=== PATIENT | female | born 1960 | race Caucasian/White ===

== ENCOUNTER 2022-07-07 18:27 | Emergency (ER) | payer MEDICARE, OTHER ==
[~2022-07-07] VITALS: Ht 167.6 cm; Wt 104.3 kg
== END 2022-07-07 19:36 | disposition home or self-care (01) ==
LOC: ER 18:27
DX: K08.89 Other specified disorders of teeth and supporting structures (principal); Z88.2 Allergy status to sulfonamides; Z88.8 Allergy status to other drugs, medicaments and biological substances
CPT/HCPCS: 64400; 99282-25

== ENCOUNTER 2022-07-27 12:05 | Emergency (ER) | payer MEDICARE, OTHER ==
[~2022-07-27] VITALS: Ht 167.6 cm; Wt 101.5 kg
[2022-07-27 12:49] LABS: BASOPHILS ABSOLUTE AUTO 0.08 K/mm3 (0.00-0.23); BASOPHILS PERCENT AUTO 1 % (0-2); EOSINOPHILS ABSOLUTE AUTO 0.17 K/mm3 (0.00-0.68); EOSINOPHILS PERCENT AUTO 1 % (0-6); Hematocrit 47.6 % (33.0-51.0); IMMATURE GRAN ABSOLUTE AUTO 0.09 K/mm3 (0.00-0.10); IMMATURE GRAN PERCENT AUTO 1 % (0-1); LYMPHOCYTES ABSOLUTE AUTO 2.95 K/mm3 (0.84-5.20); LYMPHOCYTES PERCENT AUTO 17 % (21-46); MONOCYTES ABSOLUTE AUTO 0.77 K/mm3 (0.16-1.47); MONOCYTES PERCENT AUTO 4 % (4-13); Mean Corpuscular HGB 28.4 pg (26.0-34.0); Mean Corpuscular HGB Conc 33.6 g/dL (31.5-36.5); Mean Corpuscular Volume 85 fL (80-100); Mean Platelet Volume 9.7 fL (9.1-12.4); NEUTROPHILS ABSOLUTE AUTO 13.46 K/mm3 (1.96-9.15); NEUTROPHILS PERCENT AUTO 77 % (41-73); Platelet Count 376 K/mm3 (150-400); Red Blood Cell Count 5.63 M/mm3 (3.80-5.20); White Blood Cell Count 17.52 K/mm3 (4.00-11.30)
[2022-07-27 13:06] LABS: Albumin, Blood 3.5 g/dL (3.4-5.0); Albumin/Globulin Ratio 0.8 (0.8-1.8); Bilirubin, Total 0.7 mg/dL (0.1-1.0); Bun/Creatinine Ratio 24.3 (12.0-20.0); Calcium, Blood 9.5 mg/dL (8.5-10.1); Creatinine, Blood 0.95 mg/dL (0.40-1.00); Globulin, Blood 4.3 g/dL (2.2-4.0); Potassium, Blood 3.9 mmol/L (3.5-5.5); Total Protein, Blood 7.8 g/dL (6.4-8.2)
[2022-07-27 16:52] LABS: Source, Urine Voided
[2022-07-27 16:59] LABS: Appearance, Urine Hazy (Clear); Bilirubin, Urine Neg (Neg); Blood, Urine 3+ (Neg); Color, Urine Yellow (P-Yellow); Glucose Qualitative, Urine 2+ (Neg); Ketones, Urine 1+ (Neg); Leukocyte Esterase, Urine Neg (Neg); Nitrite, Urine Neg (Neg); Protein, Urine 3+ (Neg); Urobilinogen, Urine NORM (Normal)
[2022-07-27 17:10] LABS: Bacteria Many /hpf; Squamous Epithelial Cells Few /hpf (Few)
[2022-07-27 17:12] LABS: Amorphous Light (0-Heavy); Hyaline Casts 0-2 /lpf (0-2)
[2022-07-27] MEDS ORDERED: ONDA4ODT MM (17:17)
== END 2022-07-28 09:35 | disposition home or self-care (01) ==
LOC: ER 12:05
PROVIDERS: Emergency Medicine; Student in an Organized Health Care Education/Training Program
DX: R11.2 Nausea with vomiting, unspecified (principal); R19.7 Diarrhea, unspecified; Z88.2 Allergy status to sulfonamides; Z88.1 Allergy status to other antibiotic agents
CPT/HCPCS: 36415; 80053; 81001; 82947; 83605; 83690; 85025; 87086; 96361; 96365; 96375; 96376; 99283-25; A9270; J1580; J1790; J2060; J7030

== ENCOUNTER → 2022-08-16 | Outpatient (CLI) | payer MEDICARE, OTHER ==
[~2022-08-16] MED LIST: ONDA4ODT MM
[2022-08-19 06:39] LABS: Stool Occult Bld Immuno 1 Negative (NEGATIVE)
== END | disposition home or self-care (01) ==
LOC: LAB SHORT 19:03 → LAB 19:03
PROVIDERS: Registered Nurse
DX: Z12.11 Encounter for screening for malignant neoplasm of colon (principal); Z12.12 Encounter for screening for malignant neoplasm of rectum
CPT/HCPCS: G0328

== ENCOUNTER → 2022-11-03 | Outpatient (CLI) | payer MEDICARE, OTHER | END | disposition home or self-care (01) | LOC: LAB 11:25 → LAB SHORT 11:25 | DX: E11.65 Type 2 diabetes mellitus with hyperglycemia (principal); Z79.4 Long term (current) use of insulin | CPT/HCPCS: 82043 ==

== ENCOUNTER → 2022-11-08 | Outpatient (CLI) | payer MEDICARE, OTHER | END | disposition home or self-care (01) | LOC: LAB SHORT 16:47 → LAB 16:47 | DX: N30.01 Acute cystitis with hematuria (principal) | CPT/HCPCS: 87077; 87086; 87186 ==

== ENCOUNTER → 2024-02-23 | Outpatient (CLI) | payer MEDICARE, OTHER ==
[2024-03-01 08:57] LABS: HPV HIGH RISK BY TMA Not Detected; HPV SOURCE Cervical
== END ==
LOC: LAB 15:56 → LAB SHORT 15:56
PROVIDERS: Advanced Practice Midwife
DX: Z01.419 Encounter for gynecological examination (general) (routine) without abnormal findings (principal)
CPT/HCPCS: 87624; G0123

== ENCOUNTER → 2024-03-19 | Outpatient (CLI) | payer MEDICARE, OTHER ==
[2024-03-19 20:23] LABS: Microalb/Creat Ratio UR, Rand 538.854 mg/g (0.000-30.000)
== END ==
LOC: LAB SHORT 13:51 → LAB 13:51
PROVIDERS: Internal Medicine Endocrinology, Diabetes & Metabolism
DX: E11.65 Type 2 diabetes mellitus with hyperglycemia (principal)
CPT/HCPCS: 82043; 82570

== ENCOUNTER 2024-04-24 10:09 | Day surgery (SDC) | payer MEDICARE, OTHER ==
[2024-05-23] MEDS ORDERED: CLOBETASOL EMOL15 G1 TOP (14:02)
[2024-05-23] MEDS ORDERED: TRELEGY ELLIPT1 EACH INH (14:03)
[2024-05-23] MEDS ORDERED: HYDROCORTISONE30 GM (14:04)
[2024-05-23] MEDS ORDERED: HYDPAM50 PO (14:05)
[2024-05-23] MEDS ORDERED: Ketoconazole120 ML TOP (14:05)
[2024-05-23] MEDS ORDERED: LINZESS72 MCG PO (14:06)
[2024-05-23] MEDS ORDERED: OXYB5 PO (14:06)
[2024-05-23] MEDS ORDERED: KETO15TC TOP (14:06)
[2024-05-23] MEDS ORDERED: Crestor40 MG PO (14:07)
[2024-05-23] MEDS ORDERED: SERT100 PO (14:08)
[2024-05-23] MEDS ORDERED: OZEMPIC1 MG/0.72 SC (14:08)
[2024-05-23] MEDS ORDERED: TRAZ50 PO (14:08)
[2024-05-23] MEDS ORDERED: VALS80 PO (14:09)
== END 2024-05-08 23:00 | disposition home or self-care (01) ==
LOC: MOI MAM 10:09
DX: R92.8 Other abnormal and inconclusive findings on diagnostic imaging of breast (principal); N60.91 Unspecified benign mammary dysplasia of right breast
CPT/HCPCS: 19081; 88305; A4648

== ENCOUNTER → 2024-05-20 | Outpatient (CLI) | payer MEDICARE, OTHER ==
[~2024-05-20] MED LIST changes: +CLOBETASOL EMOL15 G1 TOP; +Crestor40 MG PO; +HYDPAM50 PO; +HYDROCORTISONE30 GM; +KETO15TC TOP; +Ketoconazole120 ML TOP; +LINZESS72 MCG PO; +OXYB5 PO; +OZEMPIC1 MG/0.72 SC; +SERT100 PO; +TRAZ50 PO; +TRELEGY ELLIPT1 EACH INH; +VALS80 PO
[2024-05-20 19:22] LABS: Creatinine Urine 67.4 mg/dL (27.00-270.00); Protein, Urine Quantitative 73.4 mg/dL (0.0-11.9)
== END ==
LOC: LAB 09:06 → LAB SHORT 09:06
PROVIDERS: Internal Medicine Endocrinology, Diabetes & Metabolism
DX: E11.29 Type 2 diabetes mellitus with other diabetic kidney complication (principal); R80.9 Proteinuria, unspecified
CPT/HCPCS: 82570; 84156

== ENCOUNTER 2024-06-14 09:37 | Day surgery (SDC) | payer MEDICARE, OTHER ==
[~2024-06-14] VITALS: Ht 165.1 cm; Wt 103.7 kg
[2024-06-14] VITALS (9 sets, daily range): BP systolic 106–196; BP diastolic 45–67
[~2024-06-14 09:37] MED LIST changes: +Clindamycin 600mg in D5W 50 ML IV SCH; +Lactated Ringer's 1,000 ML IV SCH
[2024-06-14] MEDS ORDERED: METO50ER PO (10:47)
[2024-06-14] MEDS ORDERED: TOPROL XL25 MG PO (10:48)
[2024-06-14] MEDS ORDERED: Furosemide20 MG PO (10:49)
--- NOTE | 2024-06-14 11:28 | NUR ---
Ambulatory in Day Surgery. History, Chart, Medications and Allergies reviewed before start of procedure. Lungs clear T/O to Auscultation. Patient confirms NPO status and agrees with scheduled surgery. Pre-Op teaching done. Pt verbalizes understanding. Patient States Post-Procedure ride home has been arranged. PT [facility].
[2024-06-14] MEDS ORDERED: Bupivacaine 0.5% HCl 5 MG/ML 30MLVIAL ONE (12:33)
[2024-06-14] MEDS ORDERED: Rocuronium Bromide 10 MG/ML 5ML Injection IV ONE ×2 (12:50→13:09)
[2024-06-14] MEDS ORDERED: Dexamethasone Sod Phos 10 MG/ML 1ML VIAL ONE (12:50)
[2024-06-14] MEDS ORDERED: Ondansetron HCl 2 MG / ML 2ML Vial ONE (12:50)
[2024-06-14] MEDS ORDERED: propofoL 20 ML IV ONE (12:50)
[2024-06-14] MEDS ORDERED: FentaNYL Citrate 50 MCG/ML 2 ML Injection ONE (12:51)
[2024-06-14] MEDS ORDERED: propofoL 100 ML IV ONE (12:51)
[2024-06-14] MEDS ORDERED: Phenylephrine HCl 100 MCG/ML-NS 10MLSYR (1MG/10ML) ONE ×2 (13:08→14:05)
[2024-06-14] MEDS ORDERED: Sugammadex Sodium 200 MG/2ML SDV (100 MG/ML) ONE (13:45)
[2024-06-14] MEDS ORDERED: HYDROmorphone HCl/Pf 1MG SYR IV PRN ×2 (13:50)
[2024-06-14] MEDS ORDERED: FentaNYL Citrate 50 MCG/ML 2 ML Injection IV PRN ×2 (13:50→13:55)
[2024-06-14] MEDS ORDERED: Labetalol HCL 5 MG/ML 4ML Injection (Single Dose) IV PRN (13:55)
[2024-06-14] MEDS ORDERED: Droperidol 5 mg/2 ml Vial IV PRN (13:55)
[2024-06-14] MEDS ORDERED: Acetaminophen 325 MG TABLET PO PRN (13:55)
[2024-06-14] MEDS ORDERED: propofoL 50 ML IV ONE (14:22)
--- NOTE | 2024-06-14 15:31 | NUR ---
REPORT FROM RIGO SALINAS RN. ONE BIOPSY SITE HAS GAUZE AND CLEAR SURGICAL TAPE ON R BREAST THAT IS CDI. VSS. PT TOLERATING PO FLUIDS.
[2024-06-14] MEDS ORDERED: HYDROcodone 5-APAP 325 TAB PO PRN (15:35)
--- NOTE | 2024-06-14 16:12 | NUR ---
Patient up to Ambulate independently. Gait steady. Discharge instructions reviewed with patient. Patient verbalizes understanding. Copy given to patient to take home. Dressing to procedure site clean, dry, intact with no visible drainage, swelling, erythema or bruising noted. Patient States Post-Procedure ride home has been arranged. Discharged via wheelchair to private car for ride home.
== END 2024-06-14 23:00 | disposition home or self-care (01) ==
LOC: ORSCMMR 09:37
PROVIDERS: Surgery
PROC: 0HBT0ZZ Excision of Right Breast, Open Approach (ICD-10-PCS; principal; 2024-06-14 11:00)
DX: N60.91 Unspecified benign mammary dysplasia of right breast (principal); F41.9 Anxiety disorder, unspecified; G47.33 Obstructive sleep apnea (adult) (pediatric); E11.9 Type 2 diabetes mellitus without complications; I10 Essential (primary) hypertension; J44.9 Chronic obstructive pulmonary disease, unspecified; K21.9 Gastro-esophageal reflux disease without esophagitis; Z90.5 Acquired absence of kidney; Z79.85 Long-term (current) use of injectable non-insulin antidiabetic drugs; Z79.899 Other long term (current) drug therapy; Z87.891 Personal history of nicotine dependence
CPT/HCPCS: 76098; 82947; 88307; A9270; J1100; J1790; J2371; J2405; J2704; J3010; J7120

== ENCOUNTER 2024-07-22 20:56 | Emergency (ER) | payer MEDICARE, OTHER ==
[~2024-07-22] VITALS: Ht 167.6 cm; Wt 104.3 kg
[~2024-07-22 20:56] MED LIST changes: -Clindamycin 600mg in D5W 50 ML IV SCH; +Furosemide20 MG PO; -Lactated Ringer's 1,000 ML IV SCH; +METO50ER PO; +TOPROL XL25 MG PO
[2024-07-22 21:08] VITALS: BP 220/82
[2024-07-22 21:15] LABS: Source, Urine Voided
[2024-07-22 21:21] LABS: Bilirubin, Urine Neg (Neg); Blood, Urine 2+ (Neg); Glucose Qualitative, Urine 1+ (Neg); Ketones, Urine Neg (Neg); Leukocyte Esterase, Urine 3+ (Neg); Nitrite, Urine Neg (Neg); Protein, Urine 3+ (Neg); Urobilinogen, Urine NORM (Normal)
[2024-07-22 21:25] LABS: Appearance, Urine Hazy (Clear); Color, Urine Yellow (P-Yellow)
[2024-07-22 21:46] LABS: Amorphous Light (0-Heavy); Bacteria Mod /hpf; Red Blood Cells, Urine 0-2 /hpf (0-2); Squamous Epithelial Cells Mod /hpf (Few); White Blood Cells, Urine 25-50 /hpf (0-5)
[2024-07-22 21:57] LABS: BASOPHILS ABSOLUTE AUTO 0.06 K/mm3 (0.00-0.23); BASOPHILS PERCENT AUTO 1 % (0-2); EOSINOPHILS ABSOLUTE AUTO 0.43 K/mm3 (0.00-0.68); EOSINOPHILS PERCENT AUTO 4 % (0-6); Hemoglobin 13.9 g/dL (11.5-16.0); IMMATURE GRAN ABSOLUTE AUTO 0.03 K/mm3 (0.00-0.10); IMMATURE GRAN PERCENT AUTO 0 % (0-1); LYMPHOCYTES ABSOLUTE AUTO 2.46 K/mm3 (0.84-5.20); LYMPHOCYTES PERCENT AUTO 20 % (21-46); MONOCYTES ABSOLUTE AUTO 0.71 K/mm3 (0.16-1.47); MONOCYTES PERCENT AUTO 6 % (4-13); Mean Corpuscular HGB Conc 33.1 g/dL (31.5-36.5); Mean Corpuscular Volume 85 fL (80-100); Mean Platelet Volume 9.9 fL (9.1-12.4); NEUTROPHILS ABSOLUTE AUTO 8.38 K/mm3 (1.96-9.15); NEUTROPHILS PERCENT AUTO 69 % (41-73); Platelet Count 266 K/mm3 (150-400); RDW Coefficient Variation 13.9 % (11.7-14.2); RDW Standard Deviation 42.8 fL (35.1-46.3); Red Blood Cell Count 4.96 M/mm3 (3.80-5.20); White Blood Cell Count 12.07 K/mm3 (4.00-11.30)
[2024-07-22 22:16] LABS: Albumin, Blood 3.1 g/dL (3.4-5.0); Albumin/Globulin Ratio 0.8 (0.8-1.8); Bilirubin, Total 0.3 mg/dL (0.1-1.0); Bun/Creatinine Ratio 18.6 (12.0-20.0); Calcium, Blood 9.1 mg/dL (8.5-10.1); Creatinine, Blood 1.45 mg/dL (0.40-1.00); Globulin, Blood 3.9 g/dL (2.2-4.0); Potassium, Blood 4.1 mmol/L (3.5-5.5)
[2024-07-22] MEDS ORDERED: Nitrofurantoin/Nitrofuran Mac 100 MG Cap PO ONE (22:45)
[2024-07-22] MEDS ORDERED: MACRODANTIN100 M1 PO (22:47)
== END 2024-07-22 22:53 | disposition home or self-care (01) ==
LOC: ER 20:56
PROVIDERS: Student in an Organized Health Care Education/Training Program
DX: N30.00 Acute cystitis without hematuria (principal); Z79.83 Long term (current) use of bisphosphonates; Z79.52 Long term (current) use of systemic steroids; Z79.899 Other long term (current) drug therapy; Z88.2 Allergy status to sulfonamides; Z88.5 Allergy status to narcotic agent; Z88.8 Allergy status to other drugs, medicaments and biological substances
CPT/HCPCS: 74177; 80053; 81001; 83690; 85025; 87077; 87086; 87186; 99284-25; A9270; Q9967

== ENCOUNTER 2024-07-25 11:36 | Day surgery (SDC) | payer MEDICARE, OTHER ==
[~2024-07-25] VITALS: Ht 164 cm; Wt 102.2 kg
[~2024-07-25 11:36] MED LIST changes: +MACRODANTIN100 M1 PO
[2024-07-25] MEDS ORDERED: METO25ER (12:27)
[2024-07-25] MEDS ORDERED: 1/2 NS 250ml250 ML (12:28)
[2024-07-25] MEDS ORDERED: Crestor40 MG (12:28)
[2024-07-25] MEDS ORDERED: Lactated Ringer's 1,000 ML IV SCH (12:40)
[2024-07-25] MEDS ORDERED: propofoL 40 ML IV ONE (12:42)
[2024-07-25] MEDS ORDERED: Phenylephrine HCl 100 MCG/ML-NS 10MLSYR (1MG/10ML) ONE (12:43)
[2024-07-25] MEDS ORDERED: Ondansetron HCl 2 MG / ML 2ML Vial ONE (12:43)
[2024-07-25] MEDS ORDERED: Dexamethasone Sod Phos 10 MG/ML 1ML VIAL ONE (12:43)
--- NOTE | 2024-07-25 12:59 | NUR ---
Ambulatory in Day Surgery History, Chart, Medications and Allergies reviewed before start of procedure.Patient confirms NPO status and agrees with scheduled surgery. Lungs clear T/O to Auscultation.Patient states colon prep results clear.
--- NOTE | 2024-07-25 13:06 | NUR ---
07/25/24 1306 Alyssia Maria MONITOR INTACT WITH CONTINUOUS PULSE OXIMETRY, CONTINUOUS END TITAL CO2, 3-LEAD EKG AND INTERMITTENT BLOOD PRESSURE.
[2024-07-25] MEDS ORDERED: propofoL 20 ML IV ONE (13:12)
[2024-07-25 13:41] VITALS: BP 124/57
--- NOTE | 2024-07-25 14:06 | NUR ---
Discharge instructions reviewed with patient. Patient verbalizes understanding. Copy given to patient to take home. Patient States Post-Procedure ride home has been arranged. Discharged via wheelchair to private car for ride home.
== END 2024-07-25 14:03 | disposition home or self-care (01) ==
LOC: ORSCMMR 11:36 → ORD 15:15
PROVIDERS: Surgery
PROC: 0DBK8ZX Excision of Ascending Colon, Via Natural or Artificial Opening Endoscopic, Diagnostic (ICD-10-PCS; principal; 2024-07-25 13:00)
DX: Z12.11 Encounter for screening for malignant neoplasm of colon (principal); D12.2 Benign neoplasm of ascending colon; Z80.0 Family history of malignant neoplasm of digestive organs; F41.9 Anxiety disorder, unspecified; G47.33 Obstructive sleep apnea (adult) (pediatric); E11.9 Type 2 diabetes mellitus without complications; E66.9 Obesity, unspecified; Z68.38 Body mass index [BMI] 38.0-38.9, adult; Z79.85 Long-term (current) use of injectable non-insulin antidiabetic drugs; Z79.899 Other long term (current) drug therapy; Z87.891 Personal history of nicotine dependence
CPT/HCPCS: 82947; 88305; J1100; J2371; J2405; J2704; J7120

== ENCOUNTER 2024-08-02 09:32 | Day surgery (SDC) | payer MEDICARE, OTHER ==
[~2024-08-02] VITALS: Ht 167.6 cm; Wt 105.7 kg
[2024-08-02] VITALS (9 sets, daily range): BP systolic 122–153; BP diastolic 55–84
[~2024-08-02 09:32] MED LIST changes: +1/2 NS 250ml250 ML; +Crestor40 MG; +EUTHYROX50 MCG PO; +HYDHCL25 PO; -HYDROCORTISONE30 GM; +HYDROCORTISONE30 GM TD; +METO25ER PO; +NIZORAL A-D125 ML TD
[2024-08-02] MEDS ORDERED: NITR100CA PO (09:57)
[2024-08-02] MEDS ORDERED: HYDROCODONE-AC1 EA19 PO (09:58)
[2024-08-02] MEDS ORDERED: FURO20 PO (09:59)
[2024-08-02] MEDS ORDERED: FARXIGA10 MG PO (10:03)
[2024-08-02] MEDS ORDERED: Heparin Sodium 1000 Units/ML 10ML MDV ONE (10:15)
[2024-08-02] MEDS ORDERED: NS 1,000 ML IV ONE ×2 (10:15→11:22)
[2024-08-02] MEDS ORDERED: NS 250 ML IV ONE (10:15)
[2024-08-02] MEDS ORDERED: Midazolam HCl 1MG / ML 2ML Vial ONE (11:22)
[2024-08-02] MEDS ORDERED: FentaNYL Citrate 50 MCG/ML 2 ML Injection ONE (11:22)
[2024-08-02] MEDS ORDERED: HydrALAZINE HCl 20 MG / ML 1ML Vial ONE (11:52)
--- NOTE | 2024-08-02 12:39 | NUR ---
PT RETURNED TO RECOVERY ROOM IN BED. LEFT FEMORAL GROIN SITE SOFT NON-TENDER WITH NO HEMATOMA, NO PULSATILE BLEEDING AND INTACT DRESSING. LEFT DP PULSE 1. CALL LIGHT IN REACH.
--- NOTE | 2024-08-02 13:06 | NUR ---
NO CHANGES TO LEFT FEM GROIN SITE. L DP PULSE STILL 1.
--- NOTE | 2024-08-02 13:23 | NUR ---
NO CHANGES TO L FEM SITE. L DP PULSE STILL 1. HOB UP TO 45 DEGREES. PT EATING LUNCH.
--- NOTE | 2024-08-02 14:02 | NUR ---
NO CHANGES TO L FEM GROIN SITE. L DP PULSE STILL 1.
--- NOTE | 2024-08-02 14:28 | NUR ---
PT AMBULATED TO BR TO VOID. NO CHANGES TO L FEM GROIN SITE PER DEBI SARGENT. DISCHARGE INSTRUCTIONS REVIEWED ALL QUESTIONS ANSWERED. 20 G IV DISCONTINUED FROM RIGHT AC WITH INTACT CANNULA. PT ESCORTED OUT VIA WHEELCHAIR ESCORT.
== END 2024-08-02 16:39 | disposition home or self-care (01) ==
LOC: MHTC 09:32
DX: E11.51 Type 2 diabetes mellitus with diabetic peripheral angiopathy without gangrene (principal); I70.223 Atherosclerosis of native arteries of extremities with rest pain, bilateral legs; I10 Essential (primary) hypertension; E78.5 Hyperlipidemia, unspecified; G47.33 Obstructive sleep apnea (adult) (pediatric); J44.9 Chronic obstructive pulmonary disease, unspecified; Z87.891 Personal history of nicotine dependence; Z88.2 Allergy status to sulfonamides; Z88.1 Allergy status to other antibiotic agents; Z79.890 Hormone replacement therapy; Z79.899 Other long term (current) drug therapy
CPT/HCPCS: 37220; 37224; 75625; 75716; 75774; 76937; 99152; 99153; C1725; C1760; C1769; C1887; C1894; C2623; J0360; J1644; J2250; J3010; J7030; J7050; Q9967

== ENCOUNTER → 2024-09-12 | Outpatient (CLI) | payer MEDICARE, OTHER ==
[~2024-09-12] MED LIST changes: +FARXIGA10 MG PO; +FURO20 PO; +HYDROCODONE-AC1 EA19 PO; +NITR100CA PO
[2024-09-13 20:37] LABS: Protein, Urine Quantitative 98.1 mg/dL (0.0-11.9)
== END ==
LOC: LAB SHORT 08:52 → LAB 08:52 → LAB FUT 09-10 13:15 → EDSTATUS 09-10 13:15
PROVIDERS: Internal Medicine Nephrology
DX: N18.30 Chronic kidney disease, stage 3 unspecified (principal); D63.1 Anemia in chronic kidney disease; N25.81 Secondary hyperparathyroidism of renal origin; E55.9 Vitamin D deficiency, unspecified; N39.0 Urinary tract infection, site not specified; R76.9 Abnormal immunological finding in serum, unspecified; R94.5 Abnormal results of liver function studies; R94.6 Abnormal results of thyroid function studies; D51.8 Other vitamin B12 deficiency anemias; D52.8 Other folate deficiency anemias; D50.9 Iron deficiency anemia, unspecified
CPT/HCPCS: 81050; 82043; 82570; 84156

== ENCOUNTER → 2025-03-24 | Outpatient (CLI) | payer MEDICARE, OTHER ==
[2025-03-25 10:18] LABS: Bacterial Vaginosis PCR Negative (NEGATIVE); Candida Group, PCR NOT DETECTED (NOT DETECT); Candida glabrata-krusei, PCR NOT DETECTED (NOT DETECT)
== END ==
LOC: LAB SHORT 15:01 → LAB 15:01
PROVIDERS: Advanced Practice Midwife
DX: N76.0 Acute vaginitis (principal)
CPT/HCPCS: 81515

== ENCOUNTER → 2025-04-02 | Outpatient (CLI) | payer MEDICARE, OTHER ==
[2025-04-04 20:54] LABS: Microalbumin, Urine Quant. 245.0 mg/L (0.000-20.000); Protein, Urine Quantitative 70.4 mg/dL (0.0-11.9)
[2025-04-04 20:55] LABS: Sodium, Urine 95.0 mmol/L (20-110)
== END ==
LOC: LAB SHORT 08:38 → LAB 08:38 → LAB FUT 03-21 07:30
PROVIDERS: Internal Medicine Nephrology
DX: N18.2 Chronic kidney disease, stage 2 (mild) (principal); D75.1 Secondary polycythemia; N25.81 Secondary hyperparathyroidism of renal origin; E55.9 Vitamin D deficiency, unspecified; E78.00 Pure hypercholesterolemia, unspecified; R76.9 Abnormal immunological finding in serum, unspecified; R94.5 Abnormal results of liver function studies; R94.6 Abnormal results of thyroid function studies; G60.9 Hereditary and idiopathic neuropathy, unspecified
CPT/HCPCS: 81050; 82043; 84156; 84300